=== PATIENT | male | born 1980 | race American Indian/Alaskan Native ===

== ENCOUNTER 2017-09-27 12:09 | Emergency (ER) | payer SELFPAY ==
[2017-09-27 12:32] VITALS: BP 111/68
== END 2017-09-27 16:51 | disposition left against medical advice (07) ==
LOC: ED 12:09
DX: J11.1 Influenza due to unidentified influenza virus with other respiratory manifestations (principal); Z53.21 Procedure and treatment not carried out due to patient leaving prior to being seen by health care provider

== ENCOUNTER 2018-11-20 20:03 | Emergency (ER) | payer OTHER ==
--- NOTE | 2018-11-20 20:17 | Emergency Department Report ---
Blank Doc - Documentation Documentation: 38 y/o male for 1 week of throat pain and feeling like it is going to close. 3 days of chest pain. Hx/o Asthma and DM. with h/o cardiac stent placement on Metformin brilinta and ASA
--- NOTE | 2018-11-20 20:44 | XRay Report ---
XR CHEST ROUTINE 2V CLINICAL INDICATION: Male, 38 years of age. chest pain COMPARISON: None. Findings: Frontal and lateral views of the chest were obtained. Cardiac silhouette is within normal limits. No focal consolidation or effusion. No pneumothorax. Visualized bony structures are grossly intact. IMPRESSION: No acute findings. This document is electronically signed by Cuco Denise DO., November 20 2018 08:42:30 PM ET
[2018-11-20 20:57] LABS: Basophils # (Auto) 0.3 K/mm3 (0.0-0.1); Basophils % (Auto) 2.2 % (0.0-1.8); Eosinophils # (Auto) 0.3 K/mm3 (0.0-0.4); Eosinophils % (Auto) 2.2 % (0.0-4.3); Hematocrit 46.6 % (35.5-45.6); Hemoglobin 16.2 gm/dl (11.8-15.2); Lymphocytes # (Auto) 3.7 K/mm3 (1.2-5.4); Lymphocytes % (Auto) 32.1 % (13.4-35.0); Mean Corpuscular HGB Conc 35 % (32-34); Mean Corpuscular Volume 98 fl (84-94); Monocytes # (Auto) 0.5 K/mm3 (0.0-0.8); Monocytes % (Auto) 4.5 % (0.0-7.3); Platelet Count 326 K/mm3 (140-440); Red Blood Count 4.78 M/mm3 (3.65-5.03); Red Cell Distribution Width 13.2 % (13.2-15.2)
[2018-11-20 21:00] LABS: Alanine Aminotransferase 42 units/L (7-56); Albumin 4.3 g/dL (3.9-5); BUN/Creatinine Ratio 10; Blood Urea Nitrogen 10 mg/dL (9-20); Calcium 10.1 mg/dL (8.4-10.2); Hemolysis Index 10
[2018-11-20] MEDS ORDERED: MORPHINE IV ONE (21:42)
[2018-11-20] MEDS ORDERED: NACL 0.9% 1000 ML 1,000 ML IV ONE (21:42)
[2018-11-20] MEDS ORDERED: DECADRON IV ONE (21:42)
[2018-11-20] MEDS ORDERED: CLEOCIN 600 MG/50 mL 600 MG/50 ML BAG IV ONE (21:43)
--- NOTE | 2018-11-20 23:15 | Emergency Department Report ---
ED General Adult HPI - General Chief complaint: Chest Pain Stated complaint: CHEST PAIN, SORE THROAT Time Seen by Provider: 11/20/18 21:35 Source: patient Mode of arrival: Ambulatory Limitations: No Limitations - History of Present Illness Initial comments: Patient is a 38-year-old male with past mother history of coronary artery disease with prior stent as well as diabetes who is presenting with sore throat. Patient states she's had sore throat with pain with swallowing for the past 2 days. Patient states pain is sharp pain is 7 out of 10 in severity. Patient also has a nonproductive cough. Patient states that with the cough he has some sharp mid chest pain. Patient denies objective fever but has had chills. Patient denies any nausea vomiting at this time. Severity scale (0 -10): 7 - Related Data Previous Rx's Medication Instructions Recorded Last Taken Type ALBUTEROL Inhaler(NF) [VENTOLIN 2 puff IH Q4HRT #1 inha 11/20/18 Unknown Rx Inhaler(NF)] Clindamycin [Clindamycin CAP] 300 mg PO Q8H #21 cap 11/20/18 Unknown Rx HYDROcodone/ACETAMINOPHEN 1 each PO Q6HR PRN #12 tablet 11/20/18 Unknown Rx [Hydrocodone-Acetamin 5-325 mg] Ibuprofen [Ibu] 600 mg PO Q6HR PRN #20 tablet 11/20/18 Unknown Rx Allergies Allergy/AdvReac Type Severity Reaction Status Date / Time Penicillins Allergy Unknown Verified 11/20/18 20:06 ED Review of Systems ROS: Stated complaint: CHEST PAIN, SORE THROAT Other details as noted in HPI Comment: All other systems reviewed and negative ED Past Medical Hx - Past Medical History Previous Medical History?: Yes Hx Diabetes: Yes Hx Asthma: Yes - Surgical History Past Surgical History?: Yes Hx Coronary Stent: Yes - Social History Smoking Status: Current Every Day Smoker Substance Use Type: None - Medications Home Medications: Home Medications Medication Instructions Recorded Confirmed Last Taken Type ALBUTEROL Inhaler(NF) [VENTOLIN 2 puff IH Q4HRT #1 inha 11/20/18 Unknown Rx Inhaler(NF)] Clindamycin [Clindamycin CAP] 300 mg PO Q8H #21 cap 11/20/18 Unknown Rx HYDROcodone/ACETAMINOPHEN 1 each PO Q6HR PRN #12 tablet 11/20/18 Unknown Rx [Hydrocodone-Acetamin 5-325 mg] Ibuprofen [Ibu] 600 mg PO Q6HR PRN #20 tablet 11/20/18 Unknown Rx ED Physical Exam - General Limitations: No Limitations General appearance: alert, in no apparent distress - Head Head exam: Present: atraumatic, normocephalic - Eye Eye exam: Present: normal appearance - ENT ENT exam: Present: mucous membranes moist - Expanded ENT Exam Expanded Ear exam: Present: normal external inspection Mouth exam: Present: normal external inspection, tongue normal. Absent: drooling, trismus, muffled voice, tongue elevation Throat exam: Positive: tonsillar erythema, tonsillomegaly, other (uvula is midline) - Neck Neck exam: Present: normal inspection, lymphadenopathy (anterior cerv LAD, small and minimally tender) - Respiratory Respiratory exam: Present: normal lung sounds bilaterally. Absent: respiratory distress, wheezes, rales, rhonchi - Cardiovascular Cardiovascular Exam: Present: regular rate, normal rhythm. Absent: systolic murmur, diastolic murmur, rubs, gallop - GI/Abdominal GI/Abdominal exam: Present: soft, normal bowel sounds - Rectal Rectal exam: Present: deferred - Extremities Exam Extremities exam: Present: normal inspection - Back Exam Back exam: Present: normal inspection - Neurological Exam Neurological exam: Present: alert, oriented X3 - Psychiatric Psychiatric exam: Present: normal affect, normal mood - Skin Skin exam: Present: warm, dry, intact, normal color. Absent: rash ED Course Vital Signs 11/20/18 11/20/18 11/20/18 20:06 20:12 21:35 Temperature 98.4 F 98.4 F Pulse Rate 87 82 90 Respiratory 16 16 24 Rate Blood Pressure 142/64 142/64 Blood Pressure [Left] O2 Sat by Pulse 98 98 Oximetry 11/20/18 11/20/18 11/20/18 21:38 21:45 22:00 Temperature 98.1 F Pulse Rate 81 79 85 Respiratory 12 21 23 Rate Blood Pressure 126/66 133/69 Blood Pressure 122/76 [Left] O2 Sat by Pulse 99 94 96 Oximetry 11/20/18 11/20/18 11/20/18 22:15 22:17 22:57 Temperature Pulse Rate 83 Respiratory 15 16 16 Rate Blood Pressure 143/51 Blood Pressure [Left] O2 Sat by Pulse 99 99 Oximetry ED Medical Decision Making - Lab Data Result diagrams: 11/20/18 20:23 11/20/18 20:23 Lab Results 11/20/18 11/20/18 11/20/18 Range/Units 20:23 20:23 20:23 WBC 11.7 H (4.5-11.0) K/mm3 RBC 4.78 (3.65-5.03) M/mm3 Hgb 16.2 H (11.8-15.2) gm/dl Hct 46.6 H (35.5-45.6) % MCV 98 H (84-94) fl MCH 34 H (28-32) pg MCHC 35 H (32-34) % RDW 13.2 (13.2-15.2) % Plt Count 326 (140-440) K/mm3 Lymph % (Auto) 32.1 (13.4-35.0) % Childress % (Auto) 4.5 (0.0-7.3) % Eos % (Auto) 2.2 (0.0-4.3) % Baso % (Auto) 2.2 H (0.0-1.8) % Lymph # 3.7 (1.2-5.4) K/mm3 Childress # 0.5 (0.0-0.8) K/mm3 Eos # 0.3 (0.0-0.4) K/mm3 Baso # 0.3 H (0.0-0.1) K/mm3 Seg Neutrophils % 59.0 (40.0-70.0) % Seg Neutrophils # 6.9 (1.8-7.7) K/mm3 Sodium 139 (137-145) mmol/L Potassium 4.1 (3.6-5.0) mmol/L Chloride 101.9 (98-107) mmol/L Carbon Dioxide 26 (22-30) mmol/L Anion Gap 15 mmol/L BUN 10 (9-20) mg/dL Creatinine 1.0 (0.8-1.5) mg/dL Estimated GFR > 60 ml/min BUN/Creatinine Ratio 10 % Glucose 169 H (75-100) mg/dL Calcium 10.1 (8.4-10.2) mg/dL Total Bilirubin 0.40 (0.1-1.2) mg/dL AST 19 (5-40) units/L ALT 42 (7-56) units/L Alkaline Phosphatase 93 (35-129) units/L Troponin T < 0.010 (0.00-0.029) ng/mL Total Protein 6.8 (6.3-8.2) g/dL Albumin 4.3 (3.9-5) g/dL Albumin/Globulin Ratio 1.7 % - EKG Data -: EKG Interpreted by Tn EKG shows normal: sinus rhythm, axis, intervals, QRS complexes, ST-T waves - EKG Data Interpretation: normal EKG - Radiology Data [facility] [address] [place] [address] XRay Report Signed Patient: NANCY TOLLIVER JR MR# : [id number] : 1980 Acct:[id number] Age/Sex: 38 / M ADM Date: 11/20/18 Loc: ED Attending Dr: Ordering Physician: MOISES BROWN Date of Service: 11/20/18 Procedure(s): XR chest routine 2V Accession Number(s): [id number] cc: MOISES BROWN Fluoro Time In Minutes: XR CHEST ROUTINE 2V CLINICAL INDICATION: Male, 38 years of age. chest pain COMPARISON: None. Findings: Frontal and lateral views of the chest were obtained. Cardiac silhouette is within normal limits. No focal consolidation or effusion. No pneumothorax. Visualized bony structures are grossly intact. IMPRESSION: No acute findings. This document is electronically signed by Cuco Denise DO., November 20 2018 08:42:30 PM ET Transcribed By: LMA Dictated By: CHENG DENISE MD Electronically Authenticated By: CHENG DENISE MD Signed Date/Time: 11/20/182043 DD/ 39 TD/TT: 11/20/182039 - Medical Decision Making Patient is a 38-year-old black male who presented with erythema and swelling to his bilateral tonsils. There is no exudate present. Patient does have some anterior cervical lymph nodes. Patient was started on antibiotics and given meds symptomatically. One dose of Decadron has been provided as if this will help with his symptoms as well. Critical care attestation.: If time is entered above; I have spent that time in minutes in the direct care of this critically ill patient, excluding procedure time. ED Disposition Clinical Impression: Tonsillitis Disposition: DC-01 TO HOME OR SELFCARE Is pt being admited?: No Does the pt Need Aspirin: No Condition: Stable Instructions: Tonsillitis (ED) Referrals: DR. KEVIN [Other] - 3-5 Days Time of Disposition: 23:17
[2018-11-20 23:30] VITALS: BP 112/45
== END 2018-11-20 23:30 | disposition home or self-care (01) ==
LOC: ED 20:03
DX: J03.90 Acute tonsillitis, unspecified (principal); E11.9 Type 2 diabetes mellitus without complications; J45.909 Unspecified asthma, uncomplicated; F17.200 Nicotine dependence, unspecified, uncomplicated; Z95.5 Presence of coronary angioplasty implant and graft; Z88.0 Allergy status to penicillin
CPT/HCPCS: 36415; 71046; 80053; 84484; 85025; 93005; 93010; 96365; 96375; 99284; J1100; J2270; J7030

== ENCOUNTER 2018-11-23 21:58 | Emergency (ER) | payer OTHER ==
[2018-11-23 22:07] VITALS: BP 116/57
[2018-11-24] MEDS ORDERED: DECADRON IM ONE (00:30)
[2018-11-24] MEDS ORDERED: TORADOL IM ONE (00:30)
[2018-11-24] MEDS ORDERED: LIDOCAINE VISCOUS 2% PO ONE (00:31)
--- NOTE | 2018-11-24 02:01 | Emergency Department Report ---
ED ENT HPI - General Chief complaint: Sore Throat Stated complaint: SORE THROAT Time Seen by Provider: 11/24/18 00:20 Source: patient, family, EMS Mode of arrival: Ambulatory Limitations: No Limitations - History of Present Illness Initial comments: Patient is a 38-year-old -[place] male with a history of a non-insulin dependent diabetes who presents to the ED with complaint of acute onset persistent nasal and sinus congestion, cough, severe sore throat and discharge her with swollen tonsils for the last 4 days. Patient denies fever, chills, nausea, vomiting, dizziness, shortness of breath, dysphagia, dysphonia, headache, chest pain, abdominal pain, neck pain or change in vision. Patient states that no one else in the family has had similar symptoms. MD complaint: sore throat, other (Sinus and nasal congestion) -: Sudden, days(s) (4) Location: nose, throat Severity: severe Severity scale (0 -10): 7 Quality: aching, sharp Consistency: constant Improves with: none Worsens with: swallowing, eating Associated Symptoms: cough, sore throat, rhinorrhea - Related Data Previous Rx's Medication Instructions Recorded Last Taken Type ALBUTEROL Inhaler(NF) [VENTOLIN 2 puff IH Q4HRT #1 inha 11/20/18 Unknown Rx Inhaler(NF)] Clindamycin [Clindamycin CAP] 300 mg PO Q8H #21 cap 11/20/18 Unknown Rx HYDROcodone/ACETAMINOPHEN 1 each PO Q6HR PRN #12 tablet 11/20/18 Unknown Rx [Hydrocodone-Acetamin 5-325 mg] Ibuprofen [Ibu] 600 mg PO Q6HR PRN #20 tablet 11/20/18 Unknown Rx Azithromycin [Zithromax Z-KATRINA] 250 mg PO DAILY #6 tablet 11/24/18 Unknown Rx Ibuprofen [Motrin] 800 mg PO Q8HR PRN #21 tablet 11/24/18 Unknown Rx Lidocaine Viscous 2% 15 ml PO Q4H PRN #120 udc 11/24/18 Unknown Rx methylPREDNISolone [Medrol] 4 mg PO DAILY #21 tab.ds.pk 11/24/18 Unknown Rx Allergies Allergy/AdvReac Type Severity Reaction Status Date / Time Penicillins Allergy Unknown Verified 11/20/18 20:06 ED Dental HPI - General Chief complaint: Sore Throat Stated complaint: SORE THROAT Time Seen by Provider: 11/24/18 00:20 Source: patient, family, EMS Mode of arrival: Ambulatory Limitations: No Limitations - History of Present Illness Initial comments: Patient is a 38-year-old -[place]ombian male with a history of a non-insulin dependent diabetes who presents to the ED with complaint of acute onset persistent nasal and sinus congestion, cough, severe sore throat and discharge her with swollen tonsils for the last 4 days. Patient denies fever, chills, nausea, vomiting, dizziness, shortness of breath, dysphagia, dysphonia, headache, chest pain, abdominal pain, neck pain or change in vision. Patient states that no one else in the family has had similar symptoms. MD complaint: sore throat -: Sudden, days(s) (4) 1 - Erythematous tonsils and oropharynx Severity: severe Quality: burning, aching, sharp Consistency: constant Improves with: none Worsens with: swallowing, eating Dental Associated Symptons: Yes: Headache, Sore Throat - Related Data Previous Rx's Medication Instructions Recorded Last Taken Type ALBUTEROL Inhaler(NF) [VENTOLIN 2 puff IH Q4HRT #1 inha 11/20/18 Unknown Rx Inhaler(NF)] Clindamycin [Clindamycin CAP] 300 mg PO Q8H #21 cap 11/20/18 Unknown Rx HYDROcodone/ACETAMINOPHEN 1 each PO Q6HR PRN #12 tablet 11/20/18 Unknown Rx [Hydrocodone-Acetamin 5-325 mg] Ibuprofen [Ibu] 600 mg PO Q6HR PRN #20 tablet 11/20/18 Unknown Rx Azithromycin [Zithromax Z-KATRINA] 250 mg PO DAILY #6 tablet 11/24/18 Unknown Rx Ibuprofen [Motrin] 800 mg PO Q8HR PRN #21 tablet 11/24/18 Unknown Rx Lidocaine Viscous 2% 15 ml PO Q4H PRN #120 udc 11/24/18 Unknown Rx methylPREDNISolone [Medrol] 4 mg PO DAILY #21 tab.ds.pk 11/24/18 Unknown Rx Allergies Allergy/AdvReac Type Severity Reaction Status Date / Time Penicillins Allergy Unknown Verified 11/20/18 20:06 ED Review of Systems ROS: Stated complaint: SORE THROAT Other details as noted in HPI Comment: All other systems reviewed and negative Constitutional: no symptoms reported, malaise Eyes: as per HPI ENT: throat pain, congestion Respiratory: cough. denies: shortness of breath, SOB with exertion Cardiovascular: as per HPI. denies: chest pain, syncope Endocrine: no symptoms reported, see HPI Gastrointestinal: as per HPI. denies: abdominal pain, nausea, vomiting Genitourinary: as per HPI Musculoskeletal: as per HPI, arthralgia, myalgia Skin: as per HPI Neurological: as per HPI, headache. denies: numbness, paresthesias Psychiatric: as per HPI Hematological/Lymphatic: as per HPI ED Past Medical Hx - Past Medical History Previous Medical History?: Yes Hx Diabetes: Yes Hx Asthma: Yes - Surgical History Past Surgical History?: Yes Hx Coronary Stent: Yes - Social History Smoking Status: Current Every Day Smoker Substance Use Type: None - Medications Home Medications: Home Medications Medication Instructions Recorded Confirmed Last Taken Type ALBUTEROL Inhaler(NF) [VENTOLIN 2 puff IH Q4HRT #1 inha 11/20/18 Unknown Rx Inhaler(NF)] Clindamycin [Clindamycin CAP] 300 mg PO Q8H #21 cap 11/20/18 Unknown Rx HYDROcodone/ACETAMINOPHEN 1 each PO Q6HR PRN #12 tablet 11/20/18 Unknown Rx [Hydrocodone-Acetamin 5-325 mg] Ibuprofen [Ibu] 600 mg PO Q6HR PRN #20 tablet 11/20/18 Unknown Rx Azithromycin [Zithromax Z-KATRINA] 250 mg PO DAILY #6 tablet 11/24/18 Unknown Rx Ibuprofen [Motrin] 800 mg PO Q8HR PRN #21 tablet 11/24/18 Unknown Rx Lidocaine Viscous 2% 15 ml PO Q4H PRN #120 udc 11/24/18 Unknown Rx methylPREDNISolone [Medrol] 4 mg PO DAILY #21 tab.ds.pk 11/24/18 Unknown Rx ED Physical Exam - General Limitations: No Limitations General appearance: alert, in no apparent distress - Head Head exam: Present: atraumatic, normocephalic, normal inspection - Eye Eye exam: Present: normal appearance, PERRL, EOMI Pupils: Present: normal accommodation - ENT ENT exam: Present: mucous membranes moist, other (Erythematous and swollen tonsils; erythematous oropharyngeal area) - Neck Neck exam: Present: normal inspection, lymphadenopathy - Respiratory Respiratory exam: Present: normal lung sounds bilaterally - Cardiovascular Cardiovascular Exam: Present: regular rate, normal rhythm, normal heart sounds - GI/Abdominal GI/Abdominal exam: Present: soft, normal bowel sounds. Absent: tenderness - Rectal Rectal exam: Present: deferred - Extremities Exam Extremities exam: Present: normal inspection, full ROM - Back Exam Back exam: Present: normal inspection, full ROM - Neurological Exam Neurological exam: Present: alert, oriented X3, CN II-XII intact - Psychiatric Psychiatric exam: Present: normal affect - Skin Skin exam: Present: warm, dry, intact, normal color ED Course Vital Signs 11/23/18 11/23/18 22:04 22:20 Temperature 98.0 F 98 F Pulse Rate 82 78 Respiratory 18 Rate Blood Pressure 116/57 116/57 O2 Sat by Pulse 97 Oximetry ED Medical Decision Making - Medical Decision Making Patient is alert and oriented 3 and is not in distress with normal vital signs. Based on the physical exam findings and the patient's history patient was treated in the ED for pain and discharged home on antibiotics and pain medications. On reevaluation, the patient's pain is well controlled and patient advised to follow-up with his primary care physician in 7-10 days for reevaluation. Patient was advised to return to the ED immediately if symptoms get worse. - Differential Diagnosis Strep pharyngitis; Acute upper resp infection, tonsillitis Critical care attestation.: If time is entered above; I have spent that time in minutes in the direct care of this critically ill patient, excluding procedure time. ED Disposition Clinical Impression: Tonsillitis Acute pharyngitis Qualifiers: Pharyngitis/tonsillitis etiology: other specified organisms Qualified Code(s): J02.8 - Acute pharyngitis due to other specified organisms Disposition: - TO HOME OR SELFCARE Is pt being admited?: No Does the pt Need Aspirin: No Condition: Stable Instructions: Pharyngitis (ED), Upper Respiratory Infection (ED), Acute Bronchitis (ED) Additional Instructions: Take medications, drink plenty of fluids and follow up with the primary care physician in 7-10 days for reevaluation. Return to the ED immediately if symptoms get worse. Prescriptions: Lidocaine Viscous 2% 15 ml PO Q4H PRN #120 udc PRN Reason: Pain , Severe (7-10) methylPREDNISolone [Medrol] 4 mg PO DAILY #21 tab.ds.pk Ibuprofen [Motrin] 800 mg PO Q8HR PRN #21 tablet PRN Reason: Pain , Severe (7-10) Azithromycin [Zithromax Z-KATRINA] 250 mg PO DAILY #6 tablet Referrals: ANA BELLAMY MD [Primary Care Provider] - 3-5 Days Time of Disposition: 02:10 Print Language: ROMANIAN
== END 2018-11-24 02:20 | disposition home or self-care (01) ==
LOC: ED 21:58
DX: J03.90 Acute tonsillitis, unspecified (principal); J02.8 Acute pharyngitis due to other specified organisms; E11.9 Type 2 diabetes mellitus without complications; J45.909 Unspecified asthma, uncomplicated; F17.200 Nicotine dependence, unspecified, uncomplicated
CPT/HCPCS: 96372; 99283; J1100; J1885

== ENCOUNTER 2019-05-06 21:57 | Emergency (ER) | payer SELFPAY ==
[2019-05-06 22:14] VITALS: BP 120/67
--- NOTE | 2019-05-06 22:29 | Event Note ---
ED Screening Note Date of service: 05/06/19 Time: 22:24 ED Screening Note: This is a 38 y.o. M. that presents to the ER with abscess to left upper back. PMH of DM2, CAD with stent x 1, and asthma This initial assessment/diagnostic orders/clinical plan/treatment(s) is/are subject to change based on patients health status, clinical progression and re- assessment by fellow clinical providers in the ED. Further treatment and workup at subsequent clinical providers discretion. Patient/guardian urged not to elope from the ED as their condition may be serious if not clinically assessed and managed. Initial orders include:
--- NOTE | 2019-05-06 23:25 | Emergency Department Report ---
Abscess Boil HPI - HPI Chief Complaint: Skin/Abscess/Foreign Body Stated Complaint: BOIL ON BACK Time Seen by Provider: 05/06/19 22:23 Duration: >1 Week (2 YEARS) Location: Back Severity: Moderate History: Yes Pain, Yes Purulent Drainage, No Fever, No Numbness, No Foreign Body, No Previous History, No Insect Bite HPI: Patient 38-year-old -[place] male with a history of diabetes type 2 who presents for abscess upper back. pt states 2 years likely a cyst. There is no fevers, no chills. Pt stated he got purulent drainage yesterday. Home Medications: Previous Rx's Medication Instructions Recorded Last Taken Type ALBUTEROL Inhaler(NF) [VENTOLIN 2 puff IH Q4HRT #1 inha 11/20/18 Unknown Rx Inhaler(NF)] HYDROcodone/ACETAMINOPHEN 1 each PO Q6HR PRN #12 tablet 11/20/18 Unknown Rx [Hydrocodone-Acetamin 5-325 mg] Ibuprofen [Ibu] 600 mg PO Q6HR PRN #20 tablet 11/20/18 Unknown Rx Azithromycin [Zithromax Z-KATRINA] 250 mg PO DAILY #6 tablet 11/24/18 Unknown Rx Ibuprofen [Motrin] 800 mg PO Q8HR PRN #21 tablet 11/24/18 Unknown Rx Lidocaine Viscous 2% 15 ml PO Q4H PRN #120 udc 11/24/18 Unknown Rx methylPREDNISolone [Medrol] 4 mg PO DAILY #21 tab.ds.pk 11/24/18 Unknown Rx Clindamycin [Clindamycin CAP] 300 mg PO Q8H 10 Days #30 cap 05/06/19 Unknown Rx traMADol [Ultram] 50 mg PO Q6HR PRN #12 tablet 05/06/19 Unknown Rx Allergies/Adverse Reactions: Allergies Allergy/AdvReac Type Severity Reaction Status Date / Time Penicillins Allergy Unknown Verified 11/20/18 20:06 ED Review of Systems ROS: Stated complaint: BOIL ON BACK Other details as noted in HPI Constitutional: denies: chills, fever Eyes: denies: eye pain, eye discharge, vision change ENT: denies: ear pain, throat pain Respiratory: denies: cough, shortness of breath, wheezing Cardiovascular: denies: chest pain, palpitations Endocrine: no symptoms reported Gastrointestinal: denies: abdominal pain, nausea, diarrhea Genitourinary: denies: urgency, dysuria Musculoskeletal: denies: back pain, joint swelling, arthralgia Skin: other (abscess left upper back ). denies: rash, lesions Neurological: denies: headache, weakness, paresthesias Psychiatric: denies: anxiety, depression ED Past Medical Hx - Past Medical History Hx Diabetes: Yes Hx Asthma: Yes - Surgical History Hx Coronary Stent: Yes (10/04/2017) - Social History Smoking Status: Never Smoker Substance Use Type: None - Medications Home Medications: Home Medications Medication Instructions Recorded Confirmed Last Taken Type ALBUTEROL Inhaler(NF) [VENTOLIN 2 puff IH Q4HRT #1 inha 11/20/18 Unknown Rx Inhaler(NF)] HYDROcodone/ACETAMINOPHEN 1 each PO Q6HR PRN #12 tablet 11/20/18 Unknown Rx [Hydrocodone-Acetamin 5-325 mg] Ibuprofen [Ibu] 600 mg PO Q6HR PRN #20 tablet 11/20/18 Unknown Rx Azithromycin [Zithromax Z-KATRINA] 250 mg PO DAILY #6 tablet 11/24/18 Unknown Rx Ibuprofen [Motrin] 800 mg PO Q8HR PRN #21 tablet 11/24/18 Unknown Rx Lidocaine Viscous 2% 15 ml PO Q4H PRN #120 udc 11/24/18 Unknown Rx methylPREDNISolone [Medrol] 4 mg PO DAILY #21 tab.ds.pk 11/24/18 Unknown Rx Clindamycin [Clindamycin CAP] 300 mg PO Q8H 10 Days #30 cap 05/06/19 Unknown Rx traMADol [Ultram] 50 mg PO Q6HR PRN #12 tablet 05/06/19 Unknown Rx ED Abscess Boil Physical Exam - Exam General: Vital signs noted. No distress. Alert and acting appropriately. Front/Back of Body, Lg (Color): 1 - abscess 1x2 cm, mild erythema no drainage , fluctuant. Size: 2 cm Exam: Yes Tenderness, Yes Fluctuance, Yes Surrounding Cellulites/Erythema, Yes Normal Neurologic Exam, Yes Normal Circulation, No Lymphangitis, No Crepitation, No Heart Murmur I & D Note - I & D Note I & D Note: Site clean and Betadine solution, anesthesia with 1% lidocaine 2 mL, incision with 11 blade scalpel 1 straight, loculations broken up with blunt forceps, moderate purulent output, wound irrigated with 20 mL sterile saline , wound left open, sterile dressing applied ,all bleeding is controlled, patient given wound care instructions, patient tolerated procedure with minimal distress. ED Course Vital Signs 05/06/19 22:01 Temperature 98.0 F Pulse Rate 83 Respiratory 16 Rate Blood Pressure 120/67 O2 Sat by Pulse 97 Oximetry Critical care attestation.: If time is entered above; I have spent that time in minutes in the direct care of this critically ill patient, excluding procedure time. ED Medical Decision Making - Medical Decision Making upper back abscess for I&D, see procedure note, all bleeding is controlled pt tolerated procedure with minimal distress. pt for dc to home in stable c ondition. Pt will follow up pcp in 2-3 days. ED Disposition Clinical Impression: Abscess of upper back excluding scapular region Disposition: DC-01 TO HOME OR SELFCARE Is pt being admited?: No Does the pt Need Aspirin: No Condition: Stable Instructions: Abscess (ED) Prescriptions: Clindamycin [Clindamycin CAP] 300 mg PO Q8H 10 Days #30 cap traMADol [Ultram] 50 mg PO Q6HR PRN #12 tablet PRN Reason: Pain Referrals: DOMINGO PRYOR MD [Staff Physician] - 3-5 Days Forms: Work/School Release Form(ED) Time of Disposition: 23:29
== END 2019-05-06 23:46 | disposition home or self-care (01) ==
LOC: ED 21:57
DX: L02.212 Cutaneous abscess of back [any part, except buttock and flank] (principal); E11.9 Type 2 diabetes mellitus without complications; J45.909 Unspecified asthma, uncomplicated; Z95.5 Presence of coronary angioplasty implant and graft; Z79.899 Other long term (current) drug therapy; Z88.0 Allergy status to penicillin